=== PATIENT | female | born 1965 | race Two or more races ===

== ENCOUNTER 2022-11-22 12:35 | Outpatient (CLI) | payer OTHER | END 2022-11-22 12:50 | disposition home or self-care (01) | LOC: MRI 12:35 | PROVIDERS: ATTEND Neurological Surgery | DX: M54.59 Other low back pain (principal); M48.06 Spinal stenosis, lumbar region; G82.50 Quadriplegia, unspecified | CPT/HCPCS: 72141; 72146 ==